=== PATIENT | male | born 1990 | race Caucasian/White ===

== ENCOUNTER 2025-06-27 09:27 | Day surgery (SDC) | payer OTHER ==
[2025-06-20 12:07] LABS: MEAN PLATELET VOLUME 6.3 FL (7.4-10.4); PRE OP HEMATOCRIT 43.4 % (42.0-52.0); PRE OP HEMOGLOBIN 14.9 g/dL (14.0-17.9); PRE OP PLATELET COUNT 305 X10'3 (140-440); PRE OP WHITE BLOOD COUNT 9.6 10'3 (4.8-10.8); RED CELL DISTRIBUTION WIDTH 12.6 % (11.5-14.5)
[2025-06-20 12:32] LABS: CREATININE 0.89 MG/DL (0.60-1.10); PRE OP ANION GAP 4 (8-16); PRE OP BILIRUB, TOTAL 0.7 MG/DL (0.0-1.0); PRE OP GLUCOSE 122 MG/DL (70-104); PRE OP POTASSIUM 4.3 MMOL/L (3.4-5.1); PRE OP SODIUM 140 MMOL/L (135-145); TOTAL CARBON DIOXIDE 30.7 MMOL/L (24-32); eGFR > 90 ML/MIN
[2025-06-20 12:33] LABS: PRE OP ALT 35 U/L (30-65); PRE OP AST 27 U/L (10-37)
[2025-06-27] VITALS (10 sets, daily range): BP systolic 90–133; BP diastolic 65–80; PULSE 50–90; RESP 13–19; TEMP 97.1; O2SAT 96–99
[~2025-06-27] VITALS: Ht 177.8 cm; Wt 69.9 kg
[2025-06-27] MEDS: ceFAZolin 2gm/dext,iso 50mL 50 ML IV ONE (05:30)
[~2025-06-27 09:27] MED LIST: NO HOME MEDS
[2025-06-27] MEDS ORDERED: BUPIVAcaine 2.5mg/ml inj 50ml vial (contains preservative) ONE (09:46)
[2025-06-27] MEDS ORDERED: LIDOcaine 1% 30ml preserv. free vial ONE (09:46)
[2025-06-27] MEDS: ringers solution, lacted 1,000 ML IV SCH (10:40)
--- NOTE | 2025-06-27 12:24 | HISTORY AND PHYSICAL ---
History & Physical Providers to CC CC: LASHAWN CAMP MD ~ History of Present Illness Reason for Admit\Complaint: Right inguinal hernia History of Present Illness Interval history and physical exam Patient here today for elective repair of a right inguinal hernia He was seen in the office greater than 30 days ago but denies any change in his past medical history Please see previous history and physical exam for all pertinent details He is scheduled for robotic assisted laparoscopic mesh repair Allergies: Coded Allergies: No Known Allergies (Unverified , 06/26/25) Home Medications Home Medications Active Reported No Home Medications (Home Med List) Each ROS ROS Reviewed and negative with the exception of those found in the history of present illness Exam General: 34-year-old male in no acute distress Chest: Lungs are clear to auscultation bilaterally Cardiovascular: Regular rate and rhythm without murmurs Abdomen: Soft and nondistended Right side marked with indelible ink to correlate with right-sided inguinal hernia Problems: (1) Right inguinal hernia Assessment & Plan: The risks, benefits, and alternatives to a robotic assisted, laparoscopic right, possible left inguinal hernia repair with mesh were discussed with the patient. Risks include, but are not limited to, bleeding, infection, injury to intra-abdominal structures, hernia recurrence and chronic postoperative pain. Patient verbalized understanding and wishes to proceed with surgery. We will do so today as scheduled LASHAWN CAMP MD Jun 27, 2025 12:24
[2025-06-27] MEDS ORDERED: fentaNYL/PF 50MCG/1 ML 2ML syringe ONE (12:41)
[2025-06-27] MEDS ORDERED: midazolam 1 mg/ML 2ml injection ONE (12:42)
[2025-06-27] MEDS ORDERED: dexamethasone sod phosphate 4mg/ml inj. ONE (12:54)
[2025-06-27] MEDS ORDERED: rocuronium 10mg/ml inj IV ONE (12:54)
[2025-06-27] MEDS ORDERED: propofol inj 20 ML IV ONE (12:54)
[2025-06-27] MEDS ORDERED: fentaNYL/PF 50MCG/1 ML 2ML syringe IV PRN ×2 (13:40)
[2025-06-27] MEDS ORDERED: HYDROmorphone/PF 0.2 MG/ML SYRINGE IV PRN (13:40)
[2025-06-27] MEDS ORDERED: labetalol 20mg/4ml (5mg/ml) syringe IV PRN (13:40)
[2025-06-27] MEDS ORDERED: hydrALAZINE 20mg/ml inj. IV PRN (13:40)
[2025-06-27] MEDS ORDERED: ondansetron/PF 4mg/2ml inj IV PRN (13:40)
[2025-06-27] MEDS ORDERED: ringers solution, lacted 1,000 ML IV SCH (13:40)
[2025-06-27] MEDS ORDERED: glycopyrrolate 0.2mg/ml inj ONE (13:41)
[2025-06-27] MEDS ORDERED: ondansetron/PF 4mg/2ml inj ONE (13:42)
[2025-06-27] MEDS: acetaminophen 1,000mg/100ml IV 100 ML IV PRN (14:03)
--- NOTE | 2025-06-27 14:13 | OPERATIVE REPORT ---
Operative Report Providers to CC: SHUBHAM CAMP MD ~ Date of Procedure: Jun 27, 2025 Pre-Operative Diagnosis: Right inguinal hernia Post-Operative Diagnosis SAME as PRE-Op Procedure Performed Robotic assisted, laparoscopic right inguinal hernia repair with mesh Surgeon: Shubham Camp MD FACS Environmental Health Officer None Anesthesiologist: Remington Torres Type of Anesthesia: General Findings: Small indirect and moderate-sized indirect right inguinal hernias Wound class I Complications None Prosthetics\Implants used: Large right Dextile mesh Estimated Blood Loss: Minimal Specimen Removed: None Description of Procedure: Patient was brought to the operating room and identified by the nursing staff and the attending physician. Patient was placed supine and general anesthesia was induced. Patient's abdomen was prepped and draped in standard sterile fashion. Preoperative antibiotics were given. Supraumbilical incision was made to allow for standard Hardwick entry technique. Laparoscope was inserted after insufflation. Bilateral, 8.5 mm robotic trochars were placed under laparoscopic guidance following administration of local anesthetic. The [employer] robotic arm was docked to the patient and instruments placed intra-abdominally under laparoscopic visualization. The left hemipelvis was examined and showed no evidence of left inguinal hernia. Preperitoneal flap was created and carried down to the symphysis pubis. The retropubic space of [place] was developed and the bladder swept medially. Dissection was carried out laterally until both indirect and indirect hernia sacs were identified. These were relatively small in size indirect and a [id number] indirect. Hernia sacs were completely mobilized and reduced. Peritoneum was completely dissected away from the cord structures The critical view of the myopectineal orifice was achieved. Dissection was carried out laterally to allow space for mesh deployment. A large Dextile mesh and suture was passed intra-abdominally. Mesh was laid in the preperitoneal space covering both indirect, direct, and potential femoral and obturator hernias. Mesh laid without wrinkles or folds. 3 tacking sutures using 0 Ethibond were used to fix the mesh at the symphysis pubis, rectus abdominis, and just anterior to the anterior superior iliac spine. The peritoneal rent was then closed with running, 2/0, absorbable locking suture. [place] were retrieved. Abdomen was deflated and secondary trochars removed. Fascia at the umbilical port site was closed with 0 Vicryl sutures. Skin incisions were closed with 4-0 Monocryl sutures in a subcuticular fashion. Sterile dressings were applied. Patient was awakened and taken to the postanesthesia care unit in stable condition. Counts repoted as correct: Yes SHUBHAM CAMP MD Jun 27, 2025 14:13
[2025-06-27] MEDS: HYDROcodone/acetaminophen 5mg/325mg tablet PO PRN (14:34)
[2025-06-27] MEDS: HYDROmorphone inj. 0.5 MG/0.5 ML DISP.SYRIN IV PRN (14:35)
== END 2025-06-27 15:32 | disposition home or self-care (01) ==
LOC: PAS 09:27
PROVIDERS: ATTEND Surgery
DX: K40.90 Unilateral inguinal hernia, without obstruction or gangrene, not specified as recurrent (principal); F41.9 Anxiety disorder, unspecified; F17.210 Nicotine dependence, cigarettes, uncomplicated; F43.10 Post-traumatic stress disorder, unspecified; I10 Essential (primary) hypertension; I25.2 Old myocardial infarction; R73.09 Other abnormal glucose
CPT/HCPCS: 36415; 49650; 80053; 82948; 85025; C1781; J0131; J1100; J1171; J2003; J2250; J2405; J2704; J2710; J3010; J3490; J7030; J7120; S2900; Z7506; Z7508; Z7512; A4215; A4618